=== PATIENT | female | born 1990 | race Caucasian/White ===

== ENCOUNTER → 2023-06-30 07:47 | Outpatient (CLI) | payer OTHER, SELFPAY ==
--- NOTE | 2023-06-30 07:48 | DI.US.S_ITS ---
PROCEDURE: US PELVIC COMPLETE INDICATIONS: eval for pelvic pain TECHNIQUE: Real-time scanning was performed of the pelvic organs, with image documentation. Additional endovaginal scanning was necessary due to incomplete visualization of the adnexal and endometrial structures by transabdominal scanning. COMPARISON: None. FINDINGS: Uterus: Uterus is anteverted and normal in size at 6.3 x 4.2 x 3.7 cm. The myometrium is homogeneous. The endometrium measures 3 mm combined thickness. Ovaries: The right ovary measures 1.0 x 2.5 x 1.0 cm, with a calculated ovarian volume of 1 cc. The left ovary measures 2.8 x 4.5 x 2.2 cm, with a calculated ovarian volume of 14 cc. The ovaries have a normal sonographic appearance. Less than 12 follicles can be seen in each ovary. No adnexal masses are seen. There are 2 simple left ovarian cysts, 1 of which measures 1.5 x 1.8 x 1.2 cm and 1 which measures 1.9 x 1.8 x 1.7 cm. Other: No pathologic free abdominal or pelvic fluid. IMPRESSION: 1. 2 simple left ovarian cysts which are within physiologic limits for size in a premenopausal female. 2. Normal bilateral ovarian blood flow noted. 3. Otherwise unremarkable pelvic ultrasound. We strive to produce accurate, complete, and clear reports of imaging services. To assist us in improving patient care, this report was composed using standard report templates and voice recognition software. Therefore, it may contain abnormal punctuation, insertions and/or omissions. Occasional wrong-word or sound-alike substitutions may occur. Though we review the report and make efforts to correct it, we do recommend that the report be read carefully in proper context to recognize any text inaccuracies. Dictated by: Barbra Ragland M.D. on 06/30/2023 at 10:23 Approved by: Barbra Ragland M.D. on 06/30/2023 at 10:25
== END ==
LOC: US 07:48
PROVIDERS: PCP Student in an Organized Health Care Education/Training Program; Referring Provider Student in an Organized Health Care Education/Training Program; Visit Provider Student in an Organized Health Care Education/Training Program
DX: N83.292 Other ovarian cyst, left side (principal); R10.2 Pelvic and perineal pain
CPT/HCPCS: 76830; 76856; 93975

== ENCOUNTER → 2024-02-18 10:28 | Outpatient (CLI) | payer OTHER, SELFPAY ==
[2024-02-18 11:45] LABS: Natera Collection Specimen Collected
[2024-02-18 11:45] LABS: Add Manual Diff / Slide Review NO; Basophils Absolute Auto 0 /uL (0-100); Basophils Percent Auto 0.6 % (0-2); Eosinophils Absolute Auto 100 /uL (0-450); Hematocrit 35.1 % (36-46); Hemoglobin 11.8 g/dL (12.0-16.0); Lymphocytes Absolute Auto 1500 /uL (1100-4500); Lymphocytes Percent Auto 20.3 % (25-40); Mean Corpuscular HGB Conc 33.6 % (30-36); Mean Corpuscular Hemoglobin 30.1 PG (26-34); Mean Corpuscular Volume 89.7 fL (80-100); Monocytes Absolute Auto 600 /uL (0-900); Monocytes Percent Auto 7.7 % (3-14); Neutrophils Absolute Auto 5100 /uL (1500-7000); Neutrophils Percent Auto 70.4 % (50-75); Platelet Count 281 X10^3/uL (150-400); Red Blood Cell Count 3.91 X10^6/uL (4.0-5.2); Red Cell Distribution Width 13.6 % (11.6-14.8); White Blood Cell Count 7.3 X10^3/uL (4.5-11.0)
[2024-02-18 12:28] LABS: Appearance Urine UA CLEAR; Bilirubin Urine UA NEGATIVE (NEGATIVE); Color Urine UA YELLOW; Glucose Urine UA NEGATIVE (Negative); Ketones Urine UA NEGATIVE (NEGATIVE); Leukocyte Esterase Urine UA NEGATIVE (NEGATIVE); Nitrite Urine UA NEGATIVE (Negative); Occult Blood Urine UA NEGATIVE (Negative); Protein Urine UA NEGATIVE (Negative); Specific Gravity Urine UA <=1.005 (1.000-1.035); Urobilinogen Urine UA 0.2 E.U./dL (0.2)
[2024-02-18 12:35] LABS: pH Urine UA 5.5 (4.5-8.0)
[2024-02-18 12:52] LABS: Hepatitis B Surface Antigen NEGATIVE s/c (NEGATIVE); Rubella Antibody IgG 72.8 IU/mL (>15)
[2024-02-18 13:12] LABS: HIV 1 & 2 Ab/Ag 4th Gen Combo NEGATIVE (NEGATIVE); Hep C Virus Ab w/Reflex Quant NEGATIVE s/c (NEGATIVE)
[2024-02-18 13:18] LABS: Free T4, Direct Thyroxine 1.08 ng/dL (0.78-2.19)
[2024-02-18 13:32] LABS: Thyroid Stimulating Hormone 0.823 uIU/mL (0.47-4.68)
[2024-02-19 06:18] LABS: RPR Screen Non Reactive (Non Reactive)
[2024-02-19 07:20] LABS: Varicella IgG Antibody 1501 index (Immune >165)
== END ==
PROVIDERS: PCP Student in an Organized Health Care Education/Training Program; Referring Provider Student in an Organized Health Care Education/Training Program; Visit Provider Student in an Organized Health Care Education/Training Program
DX: Z34.01 Encounter for supervision of normal first pregnancy, first trimester (principal); Z86.39 Personal history of other endocrine, nutritional and metabolic disease
CPT/HCPCS: 36415; 80055; 81003; 84439; 84443; 86787; 86803; 86850; 86900; 86901; 87086; 87389

== ENCOUNTER → 2024-05-01 11:01 | Outpatient (CLI) | payer OTHER, SELFPAY ==
--- NOTE | 2024-05-01 11:02 | DI.US.S_ITS ---
PROCEDURE: US OB >= 14 WEEKS FETUS INDICATIONS: 20 week Anatomy Scan OUTSIDE/PRIOR DATING DATA: Last menstrual period (LMP): Unsure LMP-based estimated date of delivery (RUDY): 09/11/2024. First dating scan (date and location): 02/09/2024. Estimated date of delivery (RUDY) from first dating scan: 09/11/2024. The calculations are made using the ultrasound RUDY of 09/11/2024. TECHNIQUE: Real-time scanning was performed of the fetus, with image documentation and biometric measurements. Endovaginal scanning: Not performed COMPARISON: None. FINDINGS: General: A single living intrauterine gestation is present. Presentation: Vertex. Placenta: Placental position is anterior, without previa. Amniotic fluid index: 13.3 cm, normal range is 5-24 cm. Single deepest vertical pocket is 4 cm. heart rate: 144 beats per minute. Maternal cervical canal: 5.3 cm long. Normal lower limit is 2.5 cm. biometrics: Biparietal diameter: 4.7 cm, 20 weeks 0 days Head circumference: 17.2 cm, 19 weeks 5 days Abdominal circumference: 14.7 cm, 19 weeks 0 days Femur length: 3.8 cm, 22 weeks 0 days Clinically estimated gestational age: 21 weeks 0 days Composite gestational age from present scan: 20 weeks 3 days Estimated weight and percentile: 375 g, 32 percentile Anatomic survey: Neuro: Ventricles are non-dilated at less than 10 mm. Cisterna magna is normal at 3-11 mm. Cerebellum is normal in size and morphology. Nuchal skin fold: Normal at less than 6 mm between 14-21 weeks gestational age. Face: Nose and lips, facial profile are normal. Spine: No evidence for spina bifida. Heart: 4-chambered heart is present, with normal ventricular outflow tracts. Diaphragm: Diaphragm is intact. Stomach: Left-sided stomach is present. Kidneys: No hydronephrosis. Normal is less than 5 mm in 2nd trimester, less than 7 mm in 3rd trimester. Cord: 3-vessel cord has orthotopic insertion. Bladder: Normal in size. Extremities: All 4 extremities identified. IMPRESSION: 1. [place] living intrauterine at 20 weeks 3 days based on today's ultrasound. Fetus is in the 32 percentile for weight. 2. Normal placenta and amniotic fluid. 3. Normal and complete anatomic survey. We strive to produce accurate, complete, and clear reports of imaging services. To assist us in improving patient care, this report was composed using standard report templates and voice recognition software. Therefore, it may contain abnormal punctuation, insertions and/or omissions. Occasional wrong-word or sound-alike substitutions may occur. Though we review the report and make efforts to correct it, we do recommend that the report be read carefully in proper context to recognize any text inaccuracies. Dictated by: Rick Mendoza M.D. on 05/02/2024 at 10:41 Approved by: Rick Mendoza M.D. on 05/02/2024 at 10:47
== END ==
PROVIDERS: PCP Student in an Organized Health Care Education/Training Program; Referring Provider Student in an Organized Health Care Education/Training Program; Visit Provider Student in an Organized Health Care Education/Training Program
DX: Z36.89 Encounter for other specified antenatal screening (principal); Z3A.20 20 weeks gestation of pregnancy
CPT/HCPCS: 76811

== ENCOUNTER → 2024-06-06 07:26 | Outpatient (CLI) | payer OTHER, SELFPAY ==
[2024-06-06 08:52] LABS: Hematocrit 31.5 % (36-46); Hemoglobin 10.6 g/dL (12.0-16.0)
[2024-06-06 09:11] LABS: GTT (PREG) 1 Hour PP 50gm Dose 110 mg/dL (76-139)
== END ==
PROVIDERS: PCP Student in an Organized Health Care Education/Training Program; Referring Provider Student in an Organized Health Care Education/Training Program; Visit Provider Student in an Organized Health Care Education/Training Program
DX: Z34.92 Encounter for supervision of normal pregnancy, unspecified, second trimester (principal); Z3A.24 24 weeks gestation of pregnancy
CPT/HCPCS: 36415; 82950; 85014; 85018

== ENCOUNTER → 2024-07-21 10:09 | Outpatient (CLI) | payer OTHER, SELFPAY | PROVIDERS: PCP Student in an Organized Health Care Education/Training Program; Visit Provider Student in an Organized Health Care Education/Training Program | DX: R10.30 Lower abdominal pain, unspecified (principal) | CPT/HCPCS: 87086; 87210 ==

== ENCOUNTER → 2024-08-18 12:32 | Outpatient (CLI) | payer OTHER, SELFPAY ==
[2024-08-19 12:23] LABS: Strep Grp B PCR POS for Grp B Strep
== END ==
PROVIDERS: PCP Student in an Organized Health Care Education/Training Program; Visit Provider Student in an Organized Health Care Education/Training Program
DX: Z34.93 Encounter for supervision of normal pregnancy, unspecified, third trimester (principal); Z3A.36 36 weeks gestation of pregnancy
CPT/HCPCS: 87653

== ENCOUNTER 2024-09-15 10:16 | Inpatient (IN) | payer BC, SELFPAY ==
[2024-09-15 10:22] VITALS: BP 129/83
[2024-09-15 11:19] LABS: Add Manual Diff / Slide Review NO; Basophils Absolute Auto 100 /uL (0-100); Basophils Percent Auto 0.8 % (0-2); Eosinophils Absolute Auto 0 /uL (0-450); Eosinophils Percent Auto 0.6 % (2-4); Hematocrit 35.7 % (36-46); Hemoglobin 11.8 g/dL (12.0-16.0); Lymphocytes Absolute Auto 1600 /uL (1100-4500); Lymphocytes Percent Auto 18.3 % (25-40); Mean Corpuscular HGB Conc 32.9 % (30-36); Mean Corpuscular Hemoglobin 29.1 PG (26-34); Mean Corpuscular Volume 88.4 fL (80-100); Monocytes Absolute Auto 500 /uL (0-900); Neutrophils Absolute Auto 6300 /uL (1500-7000); Neutrophils Percent Auto 74.3 % (50-75); Platelet Count 263 X10^3/uL (150-400); Red Blood Cell Count 4.04 X10^6/uL (4.0-5.2); Red Cell Distribution Width 14.4 % (11.6-14.8); White Blood Cell Count 8.5 X10^3/uL (4.5-11.0)
[2024-09-15] MEDS: miSOPROStoL 25 MCG TABLET VAG ×4 (11:43→20:37)
--- NOTE | 2024-09-15 17:28 | P.HPOB_ITS ---
OB HPI Date/Time Date of admission: 09/15/24 Date Patient Seen: 09/15/24 Time Patient Seen: 12:00 History of Present Condition Chief complaint: INDUCTION RUDY Calculator 2 Estimated Delivery Date Method Current WG Current Estimate 09/11/24 Ultrasound #1 40w 4d Other Estimates 08/24/24 LMP (Certain) 43w 1d : 1 Narrative: This is a G1 at 40w4d here for IOL for post dates. complicated by GBS positive status, RH negative status. Mild cramping, otherwise no contractions. Good movement. care: good care Dating criteria OB: based on 1st trimester US only Ultrasounds: normal 1st trimester US and normal mid trimester US Obstetrical complications: none Medical complications OB: none Indications Indication for induction OB: post dates Preadmission Labs Last OB Lab Results: 2 Blood Type A Negative 09/15/24 10:50 Antibody Screen Negative 09/15/24 10:50 Hct 35.7 % (36-46) L 09/15/24 10:50 Hgb 11.8 g/dL (12.0-16.0) L 09/15/24 10:50 Hep Bs Antigen Negative s/c (NEGATIVE) 02/18/24 10:44 Hepatitis C Antibody Negative s/c (NEGATIVE) 02/18/24 10:44 Rubella Antibody 72.8 IU/mL (>15) 02/18/24 10:44 VZV IgG Antibody 1501 index (Immune >165) 02/18/24 10:44 Glucose 1 Hr 50 gm 110 mg/dL (76-139) 06/06/24 08:41 Group B Strep (PCR) Pos for grp b strep H 08/18/24 12:30 Genetic Screens: Cell-free DNA: Normal Evaluation Evaluation Baseline heart rate: 145 Variability: Average (6-10) monitor accelerations: Present Monitor Decelerations: Absent Category of Tracing: Reactive Status: Category l Dilation (cm): 0.5 Dilation: Closed Effacement: 0-30% station: -3 Position of cervix: posterior Consistency: medium Mckeon score: 1 PFSH Medical History (Updated 02/09/24 @ 15:42 by Tamela Luther RN) Hypothyroidism Gastrointestinal food sensitivity Surgical History (Updated 02/09/24 @ 08:29 by Tamela Luther RN) [place] teeth removed (02/05/19) Family History (Updated 02/09/24 @ 15:46 by Tamela Luther RN) Mother Age: 66 Hypertension Cervical cancer Father Congenital spinal deformity Aunt Cervical cancer Grandmother Ovarian cancer Grandfather Dementia Aunt Ovarian cyst Social History marital status: number of children: 0 household members: spouse lives independently: Yes caregiver/support person: No housing: house pets and animals: Yes (cat, managing litter box) education level: college occupational status: employed current occupational exposures/hazards: No special elver needs: No travel history: recent seatbelt use: always helmet use: Yes water heater temp set < 120 deg: Yes working smoke detector in home: Yes fire extinguisher in home: Yes carbon monox detector in home: Yes firearms in home: Yes firearms unloaded and locked: Yes do you feel safe at home: Yes second hand exposure: No alcohol intake: former substance use type: does not use during the past year weight has: increased > 10 lbs well-balanced diet: about half the time daily servings fruits/ve-4 caffeine: Yes (switched to decaf) Type(s) of exercise: weight lifting Meds Home Medications and Allergies Home Medications Medication Instructions Recorded Confirmed Type vitamin-ferrous sulfate tab PO 02/09/24 09/08/24 History 27 mg iron-folic acid 0.8 mg tablet vitamin B complex 1 tab PO DAILY 02/09/24 09/08/24 History Allergies Allergy/AdvReac Type Severity Reaction Status Date / Time Milk Containing Products AdvReac Mild Abdominal Verified 09/08/24 09:54 (Dairy) Pain Review of Systems Review of Systems ROS: Yes All systems reviewed with the patient and are negative except as otherwise documented Objective Labs 09/15/24 10:50 Labs: Laboratory Results - last 24 hr 09/15/24 10:50 WBC 8.5 RBC 4.04 Hgb 11.8 L Hct 35.7 L MCV 88.4 MCH 29.1 MCHC 32.9 RDW 14.4 Plt Count 263 Neut % (Auto) 74.3 Lymph % (Auto) 18.3 L [place] % (Auto) 6.0 Eos % (Auto) 0.6 L Baso % (Auto) 0.8 Neut # (Auto) 6300 Lymph # (Auto) 1600 [place] # (Auto) 500 Eos # (Auto) 0 Baso # (Auto) 100 Blood Type A Negative Antibody Screen Negative Assessment and Plan Assessment and Plan Assessment and Plan narrative: 34 yo G1 at 40w4d here for IOL for post dates. Post Dates IOL -vag miso 25 mcg given x 2 -balloon placed at 5:00pm -continue misoprostol if contractions not painful and consistent GBS pos -ampicillin when active labor or ROM Rh negative Did not receive 28 week rhogam injection -Rhogam to be given in first 72 hours if baby is Rh positive Time-Based Coding :: 45 minutes spent with patient and on the chart (including review of chart, obtaining history, exam, reviewing outside data, placing orders, documenting exam and treatment plan, and counseling patient) on 09/15/24.
[2024-09-15] MEDS: LACTATED RINGERS 1,000 ML 999 ML IV (23:00)
[2024-09-16] MEDS: miSOPROStoL 25 MCG TABLET VAG (00:37)
[2024-09-16] MEDS: LACTATED RINGERS 1,000 ML 125 ML IV ×2 (01:35→08:32)
--- NOTE | 2024-09-16 08:21 | PM.OBPNLAB ---
Date/Time Date Patient Seen: 09/16/24 Pain Control Pain control: other Comments: Difficulty with exam - vey uncomfortable. Pelvic Exam Dilation (cm): 4 Effacement (%): 50 station: -3 Amniotic membrane status: Intact Contractions Contraction pattern: Regular Contraction intensity: Moderate Status status: Category l Heart Rate Baseline: 145 Monitor Accelerations: Present Monitor Decelerations: Absent Monitor Variability: Moderate Assessment and Plan Assessment: induction ongoing Plan: begin patient augmentation Comments: 34 yo G1 at 40w5d here for IOL for post dates. Post Dates IOL -vag miso 25 mcg given x 4 -balloon placed at 5:00pm, out at 5:00am -SVE /-3; will start pitocin GBS pos -ampicillin to be started now Rh negative Did not receive 28 week rhogam injection -Rhogam to be given in first 72 hours if baby is Rh positive
[2024-09-16] MEDS: AMPICILLIN 2,000 MG in SODIUM CHLORIDE 0.9% 100 ML 200 MG IV (08:32)
[2024-09-16] MEDS: OXYTOCIN PREMIX 30 UNIT/500 ML PLAST..BAG IV (09:18)
[2024-09-16] MEDS: AMPICILLIN 1,000 MG in SODIUM CHLORIDE 0.9% 100 ML 200 MG IV ×3 (12:47→20:53)
--- NOTE | 2024-09-16 15:10 | P.PCN_ITS ---
Regional Block Pre-procedure Procedure: Continuous Lumbar Epidural for L&D Attending OB provider: Debbie Jaramillo PMH/ROS narrative: . ROS negative PSH/Anesthesia history narrative: [place] teeth, no hx of problems with anesthesia Exam narrative: [place] II ASA Class: II Labs: Hct 35.7 % (36-46) L 09/15/24 10:50 Plt Count 263 X10^3/uL (150-400) 09/15/24 10:50 Medications: Current Medications Generic Name Dose Route Start Last Admin Trade Name Freq PRN Reason Stop Dose Admin Calcium Carbonate 1,000 mg 09/15/24 10:55 Calcium Carbonate 500 Mg Tab PO Q2HR PRN Dyspepsia Carboprost Tromethamine 250 mcg 09/15/24 10:50 Carboprost 250 Mcg/Ml Ampul IM Q90M PRN Bleeding Oxytocin/Lactated Ringer's 30 unit in 500 mls @ 200 mls/hr 09/15/24 10:50 Oxytocin Premix IV CONT PRN Bleeding Protocol Tranexamic Acid 1,000 mg/ 100 mls @ 600 mls/hr 09/15/24 10:50 Sodium Chloride IV NOW PRN Bleeding Oxytocin/Lactated Ringer's 30 unit in 500 mls @ 2 mls/hr 09/16/24 09:15 09/16/24 09:18 Oxytocin Premix IV 2 milliunit/min TITRATE BERKLEY 2 mls/hr Administration Protocol 2 MILLIUNIT/MIN Ampicillin Sodium 1,000 mg/ 100 mls @ 200 mls/hr 09/16/24 12:45 09/16/24 12:47 Sodium Chloride IV 200 mls/hr Q4H BERKLEY Administration Lidocaine HCl 20 ml 09/15/24 10:50 Lidocaine 1% 20 Ml INJ INTRA-OP PRN Post Delivery Methylergonovine Maleate 0.2 mg 09/15/24 10:50 Methylergonovine 0.2 Mg Tablet PO Q6HR PRN Heavy Bleeding Methylergonovine Maleate 0.2 mg 09/15/24 10:50 Methylergonovine 0.2 Mg/Ml Vial IM NOW PRN Bleeding Mineral Oil 30 ml 09/15/24 10:50 Mineral Oil 30 Ml Udc TOP PRN PRN Version Misoprostol 800 mcg 09/15/24 10:50 Misoprostol 200 Mcg Tablet LA NOW PRN Bleeding Misoprostol 400 mcg 09/15/24 10:50 Misoprostol 200 Mcg Tablet SL NOW PRN Bleeding Misoprostol 25 mcg 09/15/24 10:50 09/16/24 00:37 Misoprostol 25 Mcg Tablet VAG 25 mcg Q4H PRN Administration cervical ripening Naloxone HCl 0.2 mg 09/15/24 10:50 Naloxone 0.4 Mg/Ml Vial IV Q2MIN PRN Opiate Reversal Ondansetron HCl 4 mg 09/15/24 10:55 Ondansetron 4 Mg/2 Ml Inj IV Q4HR PRN Nausea And Vomiting Oxytocin 10 unit 09/15/24 10:50 Oxytocin 10 Unit/Ml Vial IM NOW PRN Bleeding Zolpidem Tartrate 5 mg 09/15/24 22:22 Zolpidem 5 Mg Tablet PO BEDTIME PRN Sleep Allergies: Allergies Allergy/AdvReac Type Severity Reaction Status Date / Time Milk Containing Products AdvReac Mild Abdominal Verified 09/08/24 09:54 (Dairy) Pain Procedure Insertion date: 09/16/24 Insertion time: 14:37 Prep/Local: 1% lidocaine (chlorhex skin prep, dry x 3 min) Interspace: L4-5 Patient position: sitting Needle: 17 gauge Tuohy Loss of resistance with: saline CLARA at (cm): 8 Catheter placed at SKIN (cm): 15 Catheter in SPACE (cm): 7 Sensory level: T10 Insertion: No CSF, No Blood, No Paresthesia with insertion, No Paresthesia with injection and No Test dose reaction Initial Medications TEST DOSE time: 14:48 BOLUS DOSE time: 15:01 BOLUS DOSE (mL): 5 BOLUS DOSE med: other (pump solution) Infusion INFUSION: 0.125% bupivacaine and with fentanyl 2 mcg/mL Initial rate (mL/hr): 10 Subsequent interventions: 0430: 10cc 2% lido Post-procedure Anesthesia date START: 09/16/24 Anesthesia time START: 14:37 Anesthesia date END: 09/17/24 Anesthesia time END: 06:42 Post-procedure Anesthesia Assessment: Yes CV function: HR/BP stable, Yes Resp function: RR/sat/airway adequate, Yes Post-op hydration adequate, Yes Pain control adequate, Yes Nausea & vomiting absent, Yes Temperature > 36 C, Yes Mental status appropriate and Yes Anesthesia complications
--- NOTE | 2024-09-16 16:18 | PM.OBPNLAB ---
Date/Time Date Patient Seen: 09/16/24 Time Patient Seen: 04:00 Pain Control Pain control: tolerating well Pelvic Exam Dilation (cm): 5 Effacement (%): 80 station: -3 Amniotic membrane status: Ruptured Comments: AROM Contractions Contractions on admission: regular Monitor mode: External Pitocin rate (mU/min): 16 Contraction pattern: Regular Contraction intensity: Moderate Status status: Category l Heart Rate Baseline: 145 Monitor Accelerations: Present Monitor Decelerations: Absent Monitor Variability: Moderate Assessment and Plan Assessment: induction ongoing Plan: continuous present management Comments: 34 yo G1 at 40w5d here for IOL for post dates. Post Dates IOL -vag miso 25 mcg given x 4 -balloon placed at 5:00pm, out at 5:00am -SVE /-1; AROM at this time -pit currently at 16 GBS pos -ampicillin ongoing, started at 9am 09/16 Rh negative Did not receive 28 week rhogam injection -Rhogam to be given in first 72 hours if baby is Rh positive
[2024-09-16] MEDS: FENT 2MCG/ML BUPIV 0.125% EPI 200 MCG/100 ML PLAST..BAG 10 MCG EPIDURAL (20:15)
--- NOTE | 2024-09-16 21:25 | PM.OBPNLAB ---
Date/Time Date Patient Seen: 09/16/24 Time Patient Seen: 09:00 Pain Control Pain control: epidural Pelvic Exam Dilation (cm): 8 Effacement (%): 80 station: +1 Amniotic membrane status: Ruptured Contractions Contractions on admission: regular Monitor mode: External Pitocin rate (mU/min): 20 Contraction pattern: Regular Contraction intensity: Moderate Status status: Category l Heart Rate Baseline: 145 Monitor Accelerations: Present Monitor Decelerations: Late and Prolonged Monitor Variability: Moderate Assessment and Plan Assessment: induction ongoing Plan: continuous present management Comments: 34 yo G1 at 40w5d here for IOL for post dates. Post Dates IOL -vag miso 25 mcg given x 4 -balloon placed at 5:00pm, out at 5:00am 09/16 -AROM clear at 4pm -titrating pitocin; IUPC placed with decel down to 50s with good recovery within 4 minutes; pitocin stopped, fluid bolus given, oxygen mask placed, patient placed in left lateral position -restart pitocin at half previous dose once cat 1 tracing -SVE now /+1 GBS pos -ampicillin to be started now Rh negative Did not receive 28 week rhogam injection -Rhogam to be given in first 72 hours if baby is Rh positive
[2024-09-16] MEDS: LACTATED RINGERS 1,000 ML 1000 ML IV (22:29)
[2024-09-17] MEDS: LACTATED RINGERS 1,000 ML 125 ML IV (00:44)
--- NOTE | 2024-09-17 00:51 | PM.OBPNLAB ---
Date/Time Date Patient Seen: 09/17/24 Pain Control Pain control: epidural Pelvic Exam Dilation (cm): 8 Effacement (%): 100 station: +1 Amniotic membrane status: Ruptured Contractions Monitor mode: External Pitocin rate (mU/min): 14 Contraction pattern: Regular Contraction intensity: Moderate Status status: Category l Heart Rate Baseline: 150 Monitor Accelerations: Present Monitor Decelerations: Absent Monitor Variability: Moderate Assessment and Plan Assessment: induction ongoing Plan: continuous present management Comments: 34 yo G1 at 40w6d here for IOL for post dates. Post Dates IOL -vag miso 25 mcg given x 4 -balloon placed at 5:00pm (09/15), out at 5:00am (09/16) -AROM clear at 4pm (09/16) -titrating pitocin; IUPC placed with decel down to 50s with good recovery within 4 minutes; pitocin stopped, fluid bolus given, oxygen mask placed, patient placed in left lateral position -restarted pitocin at half previous dose (10 units), titrating up, now at 14 -SVE now 8-8.5/100/+1; will give until 6am to become complete otherwise will proceed with delivery for arrest of dilation GBS pos -ampicillin ongoing Rh negative Did not receive 28 week rhogam injection -Rhogam to be given in first 72 hours if baby is Rh positive
[2024-09-17] MEDS: AMPICILLIN 1,000 MG in SODIUM CHLORIDE 0.9% 100 ML 200 MG IV ×2 (00:59→05:03)
[2024-09-17] MEDS: FENT 2MCG/ML BUPIV 0.125% EPI 200 MCG/100 ML PLAST..BAG 10 MCG EPIDURAL (01:39)
--- NOTE | 2024-09-17 05:56 | PM.OBPNLAB ---
Date/Time Date Patient Seen: 09/17/24 Pain Control Pain control: epidural Pelvic Exam Dilation (cm): 10 Effacement (%): 100 station: +2 Amniotic membrane status: Ruptured Contractions Monitor mode: External Contraction pattern: Regular Contraction intensity: Moderate Status status: Category l Heart Rate Baseline: 145 Monitor Accelerations: Present Monitor Decelerations: Absent Monitor Variability: Moderate Assessment and Plan Assessment: induction ongoing Plan: continuous present management Comments: 34 yo G1 at 40w6d here for IOL for post dates. Post Dates IOL -vag miso 25 mcg given x 4 -balloon placed at 5:00pm (09/15), out at 5:00am (09/16) -AROM clear at 4pm (09/16) -titrating pitocin; IUPC placed with decel down to 50s with good recovery within 4 minutes; pitocin stopped, fluid bolus given, oxygen mask placed, patient placed in left lateral position (9pm 09/16) -pitocin break from 1am-2am 09/17 -SVE now 10/100/+2, pushing starting at 5:15am GBS pos -ampicillin ongoing Rh negative Did not receive 28 week rhogam injection -Rhogam to be given in first 72 hours if baby is Rh positive
[2024-09-17] MEDS: miSOPROStoL 200 MCG TABLET 800 MCG PR (07:03)
[2024-09-17] MEDS: TRANEXAMIC ACID 1,000 MG in SODIUM CHLORIDE 0.9% 100 ML 600 MG IV (07:03)
--- NOTE | 2024-09-17 07:45 | PM.OBPRVD ---
Events: Labor Induction Labor & Delivery Delivery date: 09/17/24 Delivery Time: 06:42 Cervical ripening method: per misoprostal protocol Induction method: AROM Delivery augmentation: pitocin Delivery monitor: external FHT Route of delivery: L&D Laceration Description: Perineal - 2nd Degree Delivery repair: vicryl Estimated blood loss (mL): 1,000 Anesthesia Type: Epidural Complications: hemorrhage Narrative: This is a 34 yo G1 now P1 who was induced at 40w4d for post dates who delivered 40w6d via . She was induced with misoprostol, lewis bulb, AROM and pitocin. Intrapartum events notable for slow progression from 6 to complete and two late decels that lasted 4-5 minutes. Patient was found to be complete and pushed effectively for 1.5 hrs. She delivered a viable female in OA position. Cord was clamped and cut at 5 minutes of life. Placenta delivered approximately 15 minutes later with large gush of blood. Pitocin bolus was started. Bleeding continued. 1000 mcg of misoprostol was given rectally and 1 gm TXA given IV. A uterine sweep was performed with clot burden and poor uterine tone. Ongoing fundal massage and medications led to firm fundus within the next minute. 2gm ancef ordered for uterine sweep. Attention was then paid to a second degree perineal laceration. This was repaired with 3-0 vicryl. Despite epidural, sharp pain during repair so subq lidocaine was also injected. Following repair, mom and baby are recovering well. Plan for aftercare: Routine care
[2024-09-17] MEDS: CEFAZOLIN 2 GM/100 ML PREMIX 100 ML IV (07:46)
[2024-09-17] MEDS: ACETAMINOPHEN 325 MG TABLET 650 MG PO ×3 (07:58→20:31)
[2024-09-17] MEDS: IBUPROFEN 600 MG TABLET PO ×3 (07:59→20:30)
[2024-09-17] MEDS: LANOLIN OINT 7 GM 1 APPLIC TOP (18:37)
[2024-09-18] MEDS: IBUPROFEN 600 MG TABLET PO ×2 (02:14→08:49)
[2024-09-18] MEDS: ACETAMINOPHEN 325 MG TABLET 650 MG PO ×2 (02:14→08:48)
[2024-09-18 07:35] LABS: Add Manual Diff / Slide Review NO; Basophils Absolute Auto 0 /uL (0-100); Basophils Percent Auto 0.4 % (0-2); Eosinophils Absolute Auto 200 /uL (0-450); Hematocrit 27.1 % (36-46); Hemoglobin 8.9 g/dL (12.0-16.0); Lymphocytes Absolute Auto 1900 /uL (1100-4500); Lymphocytes Percent Auto 17.5 % (25-40); Mean Corpuscular HGB Conc 32.8 % (30-36); Mean Corpuscular Hemoglobin 28.9 PG (26-34); Mean Corpuscular Volume 88.2 fL (80-100); Monocytes Absolute Auto 900 /uL (0-900); Monocytes Percent Auto 7.8 % (3-14); Neutrophils Absolute Auto 7900 /uL (1500-7000); Neutrophils Percent Auto 72.3 % (50-75); Platelet Count 216 X10^3/uL (150-400); Red Blood Cell Count 3.07 X10^6/uL (4.0-5.2); Red Cell Distribution Width 14.5 % (11.6-14.8)
[2024-09-18] MEDS: WITCH HAZEL/GLYCERIN PADS 1 EACH TOP (08:49)
[2024-09-18] MEDS: DOCUSATE 100 MG CAPSULE PO (08:49)
--- NOTE | 2024-09-18 10:27 | PM.OBDS.1 ---
Discharge Providers Provider Date of admission: 09/15/24 10:16 Discharge Date: 09/18/24 Primary care physician: Debbie Jaramillo MD Consults: 09/15/24 10:52 Consult to Anesthesiology Urgent Comment: Consulting Provider: Anesthesiologist Reason for consultation: Epidural 09/18/24 07:37 Consult to Medical Lead Routine Comment: Discharge provider: Debbie Jaramillo MD Summary Hospital Course Date Patient Seen: 09/18/24 Time Patient Seen: 07:00 Diagnoses: term vaginal delivery Hospital Course: This is a 34 yo F who presented for IOL for post dates at 40w4d. Delivered via at 40w6d. IOL with misoprostol, lewis bulb, AROM and pitocin. course uncomplicated. well, using formula until milk comes in. Peripartum Data Infant Delivery Method: Natural Vaginal Laceration Description: Perineal - 2nd Degree complications: none Status at Discharge Cognitive/behavioral status at discharge: oriented Functional status at discharge: independent ambulation Overall status at discharge: patient is back to baseline Time Spent with Patient Time attestation: Total time spent providing and/or coordinating discharge services: 40 minutes Time spent: Greater than 30 minutes Objective Labs 09/18/24 07:19 Labs: Laboratory Results - last 24 hr 09/17/24 09/18/24 11:40 07:19 WBC 11.0 RBC 3.07 L Hgb 8.9 L Hct 27.1 L MCV 88.2 MCH 28.9 MCHC 32.8 RDW 14.5 Plt Count 216 Neut % (Auto) 72.3 Lymph % (Auto) 17.5 L [place] % (Auto) 7.8 Eos % (Auto) 2.0 Baso % (Auto) 0.4 Neut # (Auto) 7900 H Lymph # (Auto) 1900 [place] # (Auto) 900 Eos # (Auto) 200 Baso # (Auto) 0 Maternal Bleed Negative Exam Narrative Exam Narrative: NAD, breathing easily, fundus firm below umbilicus Discharge Plan Discharge Plan Patient Disposition: Home Discharge orders & Medications Prescriptions: New acetaminophen 325 mg Tablet 650 mg PO Q6HR PRN (Reason: Pain, Mild (1-3)) 7 Days Qty: 60 0RF docusate sodium 100 mg Capsule 100 mg PO DAILY 30 Days Qty: 60 0RF ibuprofen 600 mg Tablet 600 mg PO Q6HR PRN (Reason: Pain, Mild (1-3)) 7 Days Qty: 30 0RF ferrous sulfate 325 mg (65 mg iron) tablet 325 mg PO DAILY Qty: 30 0RF ferrous sulfate 325 mg (65 mg iron) tablet 325 mg PO DAILY Qty: 30 0RF Continued vit-ferrous sulfat-FA 27 mg iron- 0.8 mg tablet 1 tab PO DAILY vitamin B complex Tablet 1 tab PO DAILY Follow up/Referrals: Debbie Jaramillo MD [Primary Care Provider] - (6 week w/ Dr. Jaramillo: ) Visit Report/Discharge Packet Instructions: DI for Hemorrhage, DI for Depression Stand Alone Forms: Patient Portal/API, Stroke Signs & Symptoms Discharge Data Primary Care Provider: Debbie Jaramillo Discharges patient from system. Discharge Date/Time: 09/18/24 12:10
[2024-09-18] MEDS: RHO(D) IMMUNE GLOBULIN 1,500 UNIT SYRINGE 1500 UNIT IM (11:26)
== END 2024-09-18 12:10 | disposition home or self-care (01) | DRG 806 ==
PROVIDERS: Admitting Provider Student in an Organized Health Care Education/Training Program; PCP Student in an Organized Health Care Education/Training Program; Referring Provider Student in an Organized Health Care Education/Training Program; Visit Provider Student in an Organized Health Care Education/Training Program
DX: O48.0 Post-term pregnancy (principal); O72.1 Other immediate postpartum hemorrhage; Z37.0 Single live birth; Z3A.40 40 weeks gestation of pregnancy; O99.824 Streptococcus B carrier state complicating childbirth; O70.1 Second degree perineal laceration during delivery
CPT/HCPCS: 36415; 59050; 59200; 59400; 85025; 85461; 86850; 86900; 86901; G0379; J0290; J0690; J2590; J2790; S0191

== ENCOUNTER → 2024-09-27 13:58 | Outpatient (CLI) | payer BC, SELFPAY ==
--- NOTE | 2024-09-27 14:00 | DI.US.S_ITS ---
PROCEDURE: US PELVIC COMPLETE INDICATIONS: severe abdominal pain TECHNIQUE: Real-time scanning was performed of the pelvic organs, with image documentation. Additional endovaginal scanning was necessary due to incomplete visualization of the adnexal and endometrial structures by transabdominal scanning. COMPARISON: [facility], , US PELVIC COMPLETE, 06/30/2023, 8:06. FINDINGS: appearing enlarged uterus measures up to approximately 15.7 x 9.9 x 6.7 cm. Uterus: Endometrial echo complex is thickened with heterogeneous echogenicity measuring up to 1.8 cm with 3.9 x 1.1 x 1.1 cm irregular solid-appearing area with internal vascularity possible retained products of conception. Polyp or other lesion could be considered rarely. Follow-up is needed if no intervention performed. Ovaries: The right ovary is not visualized per notes. The left ovary measures 3.2 x 1.6 x 1.4 cm, with a calculated ovarian volume of 3.6 cc. The left ovary has a normal sonographic appearance. Less than 12 follicles can be seen on the left. Other: No pathologic free abdominal or pelvic fluid. IMPRESSION: enlarged uterus as discussed above. Thickened endometrial echo complex with heterogeneous appearance and areas of increased vascularity possible retained products of conception. Follow-up is needed. Results conveyed to 2:34 p.m. We strive to produce accurate, complete, and clear reports of imaging services. To assist us in improving patient care, this report was composed using standard report templates and voice recognition software. Therefore, it may contain abnormal punctuation, insertions and/or omissions. Occasional wrong-word or sound-alike substitutions may occur. Though we review the report and make efforts to correct it, we do recommend that the report be read carefully in proper context to recognize any text inaccuracies. Dictated by: Joce Henson M.D. on 09/27/2024 at 15:27 Approved by: Joce Henson M.D. on 09/27/2024 at 15:33
== END ==
PROVIDERS: PCP Student in an Organized Health Care Education/Training Program; Referring Provider Family Medicine; Visit Provider Family Medicine
DX: O90.89 Other complications of the puerperium, not elsewhere classified (principal); N94.9 Unspecified condition associated with female genital organs and menstrual cycle; N85.2 Hypertrophy of uterus
CPT/HCPCS: 76856

== ENCOUNTER → 2024-10-22 11:45 | Outpatient (CLI) | payer BC, SELFPAY | PROVIDERS: PCP Student in an Organized Health Care Education/Training Program; Visit Provider Nurse Practitioner Family | DX: R10.11 Right upper quadrant pain (principal); R10.30 Lower abdominal pain, unspecified; N94.89 Other specified conditions associated with female genital organs and menstrual cycle | CPT/HCPCS: 87086; 87210 ==